=== PATIENT | female | born 1950 | race Caucasian/White ===

== ENCOUNTER 2018-06-11 09:00 | Inpatient (IN) | payer OTHER ==
[~2018-06-11] VITALS: Ht 149.9 cm; Wt 83.0 kg
[~2018-06-11 09:00] MED LIST: ADVAIR HFA 115/12 GM IH; ASPIRIN81 M1 PO; CLONAZEPAM1 MG PO; DILTIAZEM PO; DIOVAN160 M1 PO; DOCUSATE SODIU100 MG PO; GABAPENTIN800 MG PO; METHYLPRED4 MG/DOSE- PO; OMEPRAZOLE PO; PERCOCET 5/3251 TAB PO; SINGULAIR10 MG PO
[2018-06-16] MEDS ORDERED: COLACE100 MG PO (09:22)
[2018-06-16] MEDS ORDERED: NEURONTIN800 MG PO (09:23)
[2018-06-16] MEDS ORDERED: BACTRIM DS TAB1 EACH PO (09:23)
[2018-06-16] MEDS ORDERED: PERCOCET 5-3251 EACH PO (09:24)
[2018-06-16] MEDS ORDERED: CLONAZEPAM1 MG PO (09:24)
== END 2018-06-17 15:05 | disposition home or self-care (01) | DRG 520 ==
LOC: SURH 09:00 → O/R 06-16 04:34 → SURH 06-16 14:15
PROVIDERS: ADMIT Orthopaedic Surgery Orthopaedic Surgery of the Spine
PROC: 01NB0ZZ Release Lumbar Nerve, Open Approach (ICD-10-PCS; 2018-06-16)
PROC: 4A12X4Z Monitoring of Cardiac Electrical Activity, External Approach (ICD-10-PCS; 2018-06-16)
PROC: 00SY0ZZ Reposition Lumbar Spinal Cord, Open Approach (ICD-10-PCS; principal; 2018-06-16 07:00)
DX: M96.1 Postlaminectomy syndrome, not elsewhere classified (principal); M48.062 Spinal stenosis, lumbar region with neurogenic claudication; I10 Essential (primary) hypertension